=== PATIENT | female | born 2000 | race African-American/Black ===

== ENCOUNTER → 2021-04-16 | Outpatient (CLI) | payer MEDICAID, OTHER ==
--- NOTE | 2021-04-16 16:51 | Diagnostic Imaging Report ---
INDICATION: Crohn's disease. COMPARISON: None. FINDINGS: Single supine radiographic view of the abdomen was obtained and demonstrates nondistended loops of small bowel. There is no large collection of free peritoneal air. Mild air and stool are seen scattered throughout the colon. No unexpected extraosseous calcifications or radiopaque foreign bodies are seen. Bony structures show no gross acute abnormalities. IMPRESSION: Nonobstructed small bowel gas pattern. Dictated by: Dictated on workstation # [id number]
== END ==
LOC: LAB 15:37
PROVIDERS: ATTEND Nurse Practitioner Pediatrics
DX: K50.90 Crohn's disease, unspecified, without complications (principal)
CPT/HCPCS: 36415; 74018; 83993; 87015; 87045; 87046; 87324; 87328; 87449; 87899

== ENCOUNTER → 2021-08-07 | Outpatient (CLI) | payer MEDICAID | LOC: LAB 14:02 | PROVIDERS: ATTEND Nurse Practitioner Pediatrics | DX: K50.90 Crohn's disease, unspecified, without complications (principal) | CPT/HCPCS: 36415; 83993; 87015; 87045; 87046; 87324; 87328; 87329; 87449; 87493; 87899 ==

== ENCOUNTER 2021-12-12 08:37 | Emergency (ER) | payer MEDICAID ==
[~2021-12-12] VITALS: Ht 167 cm; Wt 56.0 kg
[2021-12-12 09:07] LABS: BASOPHILS # (AUTO) 0.1 10^3/uL (0.0-0.1); BASOPHILS % (AUTO) 1 % (0-10); EOSINOPHILS # (AUTO) 0.3 10^3/uL (0.0-0.3); EOSINOPHILS % (AUTO) 3 % (0-10); HEMATOCRIT 41 % (35-52); HEMOGLOBIN 12.9 g/dL (11.5-16.0); LYMPHOCYTES # (AUTO) 3.7 10^3/uL (1.0-4.0); LYMPHOCYTES % (AUTO) 42 % (12-44); MEAN CORPUSCULAR HEMOGLOBIN 30 pg (25-34); MEAN CORPUSCULAR HGB CONC 31 g/dL (32-36); MEAN CORPUSCULAR VOLUME 94 fL (80-99); MEAN PLATELET VOLUME 9.3 fL (9.0-12.2); MONOCYTES # (AUTO) 0.6 10^3/uL (0.0-1.0); MONOCYTES % (AUTO) 7 % (0-12); NEUTROPHILS # (AUTO) 4.2 10^3/uL (1.8-7.8); NEUTROPHILS % (AUTO) 48 % (42-75); PLATELET COUNT 412 10^3/uL (130-400); WHITE BLOOD COUNT 8.9 10^3/uL (4.3-11.0)
[2021-12-12 09:23] LABS: ALBUMIN 3.9 GM/DL (3.2-4.5); CHLORIDE 107 MMOL/L (98-107); POTASSIUM 4.1 MMOL/L (3.6-5.0); SODIUM 141 MMOL/L (135-145)
[2021-12-12 09:25] LABS: BILIRUBIN,URINE NEGATIVE (NEGATIVE); CLARITY,URINE CLEAR; COLOR,URINE YELLOW; GLUCOSE, URINE (UA) NEGATIVE (NEGATIVE); KETONES,URINE NEGATIVE (NEGATIVE); LEUKOCYTE ESTERASE ,URINE NEGATIVE (NEGATIVE); NITRITE,URINE NEGATIVE (NEGATIVE); PH,URINE 5.5 (5-9); PROTEIN,URINE NEGATIVE (NEGATIVE)
[2021-12-12 09:25] LABS: AMYLASE 141 U/L (25-125)
[2021-12-12 09:26] LABS: GLUCOSE 80 MG/DL (70-105); TOTAL PROTEIN 7.5 GM/DL (6.4-8.2)
[2021-12-12 09:27] LABS: CARBON DIOXIDE 24 MMOL/L (21-32)
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
[2021-12-12 09:28] LABS: BILIRUBIN,TOTAL 0.3 MG/DL (0.1-1.0)
[2021-12-12 09:29] LABS: ALKALINE PHOSPHATASE 87 U/L (40-136)
[2021-12-12 09:30] LABS: CREATININE SERUM 0.69 MG/DL (0.60-1.30); GFR ESTIMATED 127
[2021-12-12 09:31] LABS: BUN/CREATININE RATIO 13
[2021-12-12 09:33] LABS: ALANINE AMINOTRANSFERASE 12 U/L (0-55); MAGNESIUM 1.8 MG/DL (1.6-2.4)
[2021-12-12 09:34] LABS: CREATINE KINASE 127 U/L (29-168); LIPASE 65 U/L (8-78)
[2021-12-12 09:38] LABS: AMPHETAMINE SCREEN, URINE NEGATIVE (NEGATIVE); BARBITURATE SCREEN URINE NEGATIVE (NEGATIVE); BENZODIAZEPINES SCREEN URINE NEGATIVE (NEGATIVE); CANNABINOID SCREEN, URINE NEGATIVE (NEGATIVE); COCAINE SCREEN URINE NEGATIVE (NEGATIVE); METHADONE STAT NEGATIVE (NEGATIVE); OPIATE SCREEN URINE NEGATIVE (NEGATIVE); OXYCODONE STAT NEGATIVE (NEGATIVE); PROPOXYPHENE STAT NEGATIVE (NEGATIVE); TRICYCLIC ANTIDEPRESSANTS SCRE NEGATIVE (NEGATIVE)
[2021-12-12 09:40] LABS: CREATINE KINASE MB 0.6 NG/ML (<6.6)
[2021-12-12 09:48] LABS: BACTERIA,URINE TRACE /HPF; RBC,URINE 0-2 /HPF
[2021-12-12] MEDS ORDERED: CYCL10TA25 PO (09:53)
[2021-12-12] MEDS ORDERED: NAPR500T8 PO (09:53)
[2021-12-12] MEDS ORDERED: KETOROLAC 30 MG/ML VIAL IVP ONE (10:00)
--- NOTE | 2021-12-12 10:04 | Diagnostic Imaging Report ---
INDICATION: Chest pain COMPARISON: None available. TECHNIQUE: Single frontal radiograph of the chest dated 12/12/2021. FINDINGS: The cardiac silhouette is within normal limits in size. No significant pulmonary vascular congestion. Bilateral nipple ornamentation is noted. The lungs are clear of focal pulmonary opacity. No pleural effusion. No pneumothorax. No acute osseous abnormality. IMPRESSION: No acute cardiopulmonary abnormality. Dictated by: Dictated on workstation # [id number]
[2021-12-12 10:28] VITALS: BP 112/64
== END 2021-12-12 10:28 | disposition home or self-care (01) ==
LOC: EDUNIT# 08:37 → ER 08:38
DX: R07.89 Other chest pain (principal); Z32.02 Encounter for pregnancy test, result negative
CPT/HCPCS: 71045; 80053; 80306; 81000; 82150; 82550; 82553; 83690; 83735; 84484; 84703 ×2; 85025; 93041; G0480; 36415; 80320; 93005

== ENCOUNTER 2021-12-19 09:30 | Outpatient (RCR) | payer MEDICAID ==
[~2021-12-19] VITALS: Ht 168.9 cm; Wt 56.4 kg
[~2021-12-19 09:30] MED LIST: CYCL10TA25 PO; NAPR500T8 PO
[2021-12-19] MEDS ORDERED: CATHETER FLUSH 10 ML SYR IVP PRN (09:45)
[2021-12-19] MEDS ORDERED: diphenhydrAMINE 50 MG/ML INJ (BENADRYL) IVP PRN (09:45)
[2021-12-19] MEDS ORDERED: ACETAMINOPHEN 500 MG TAB (TYLENOL) PO PRN (09:45)
[2021-12-19] MEDS ORDERED: VEDOLIZUMAB 300 MG/NS 250 ML IVPB IV SCH ×2 (09:45)
[2021-12-19] MEDS ORDERED: EPINEPHrine INJECTION 1 MG/ML AMP IM PRN (09:45)
[2021-12-19 11:05] VITALS: BP 90/64
[2021-12-19 16:37] VITALS: BP 90/64
== END 2022-01-01 | disposition home or self-care (01) ==
LOC: SDC 09:30
PROVIDERS: ATTEND Internal Medicine
DX: K50.90 Crohn's disease, unspecified, without complications (principal)
CPT/HCPCS: 96365; 96366; J3380

== ENCOUNTER 2022-02-13 09:27 | Outpatient (RCR) | payer MEDICAID ==
[~2022-02-13] VITALS: Ht 167 cm; Wt 59.0 kg
[2022-02-13] MEDS ORDERED: diphenhydrAMINE 50 MG/ML INJ (BENADRYL) IVP PRN (10:00)
[2022-02-13] MEDS ORDERED: EPINEPHrine INJECTION 1 MG/ML AMP IM PRN (10:00)
[2022-02-13] MEDS ORDERED: CATHETER FLUSH 10 ML SYR IVP PRN (10:00)
[2022-02-13] MEDS ORDERED: ACETAMINOPHEN 500 MG TAB (TYLENOL) PO PRN (10:00)
[2022-02-13] MEDS ORDERED: VEDOLIZUMAB 300 MG/NS 250 ML IVPB IV SCH ×2 (10:00)
[2022-02-13 10:50] VITALS: BP 110/69
== END 2022-03-03 | disposition home or self-care (01) ==
LOC: SDC 09:27
PROVIDERS: ATTEND Internal Medicine
DX: K50.90 Crohn's disease, unspecified, without complications (principal)
CPT/HCPCS: 96365; J3380

== ENCOUNTER 2022-04-25 13:31 | Outpatient (RCR) | payer MEDICAID ==
[~2022-04-25] VITALS: Ht 167 cm; Wt 59.0 kg
[2022-04-25] MEDS ORDERED: EPINEPHrine INJECTION 1 MG/ML AMP IM PRN (14:00)
[2022-04-25] MEDS ORDERED: CATHETER FLUSH 10 ML SYR IV SCH (14:00)
[2022-04-25] MEDS ORDERED: diphenhydrAMINE 50 MG/ML INJ (BENADRYL) IVP PRN (14:00)
[2022-04-25] MEDS ORDERED: VEDOLIZUMAB 300 MG/NS 250 ML IVPB IV SCH ×2 (14:00)
[2022-04-25] MEDS ORDERED: ACETAMINOPHEN 500 MG TAB (TYLENOL) PO PRN ×2 (14:00→14:15)
[2022-04-25 15:00] VITALS: BP 110/74
== END 2022-05-03 | disposition home or self-care (01) ==
LOC: SDC 13:31
PROVIDERS: ATTEND Internal Medicine
DX: K50.90 Crohn's disease, unspecified, without complications (principal)
CPT/HCPCS: 96365; J3380

== ENCOUNTER 2022-08-23 11:13 | Outpatient (RCR) | payer MEDICAID ==
[~2022-08-23] VITALS: Ht 167.6 cm; Wt 59.0 kg
[2022-08-23 11:20] VITALS: BP 109/75
[2022-08-23] MEDS ORDERED: VEDOLIZUMAB 300 MG/NS 250 ML IVPB IV SCH ×2 (11:30)
[2022-08-23] MEDS ORDERED: CATHETER FLUSH 10 ML SYR IVP PRN (11:30)
[2022-08-23] MEDS ORDERED: EPINEPHrine INJECTION 1 MG/ML AMP IM PRN (11:45)
[2022-08-23] MEDS ORDERED: diphenhydrAMINE 50 MG/ML INJ (BENADRYL) IVP PRN (11:45)
[2022-08-23] MEDS ORDERED: ACETAMINOPHEN 500 MG TAB (TYLENOL) PO PRN (11:45)
== END 2022-09-03 | disposition still patient (30) ==
LOC: SDC 11:13
PROVIDERS: ATTEND Internal Medicine
DX: K50.90 Crohn's disease, unspecified, without complications (principal)
CPT/HCPCS: 96365; J3380